=== PATIENT | female | born 1960 | race Caucasian/White ===

== ENCOUNTER → 2019-07-25 | Outpatient (CLI) | payer OTHER ==
--- NOTE | 2019-07-25 12:56 | Diagnostic Imaging Report ---
Ultrasound of the Kidneys, 07/25/2019. Clinical History: Right kidney disease. Discussion: Sonographic evaluation of the kidneys is performed. Right kidney: 12.8 cm in length. The right renal cortex is very thin. There is chronic appearing hydronephrosis versus large cysts which appear evaluation of the renal parenchyma. Left kidney: 11.6 cm in length, normal in size, with cortical thickness of 1.8 cm. Normal cortical echogenicity. There is a 1.1 cm simple appearing cyst in the upper pole.. No shadowing calculus. No hydronephrosis. Limited Doppler evaluation demonstrates normal color Doppler flow within bilateral renal erlinda. Fluid: No perinephric fluid. Bladder: Unremarkable. Bilateral ureteral jets are visualized. IMPRESSION: 1. Normal sonographic evaluation the left kidney. 2. The right kidney demonstrates either numerous large cysts which obscure the visualization of the renal parenchyma or chronic hydronephrosis with marked cortical thinning. Further evaluation can be obtained with renal protocol CT or MR. Signed by: Rocky Orourke MD on 07/25/2019 12:53 PM
== END ==
LOC: US 11:27
PROVIDERS: ATTEND Internal Medicine Nephrology
DX: N18.3 Chronic kidney disease, stage 3 (moderate) (principal)
CPT/HCPCS: 76770; 76857

== ENCOUNTER → 2019-09-05 | Outpatient (CLI) | payer OTHER ==
--- NOTE | 2019-09-05 08:52 | Diagnostic Imaging Report ---
EXAMINATION: CT of the abdomen and pelvis without contrast. TECHNIQUE: Spiral CT images of the abdomen and pelvis were performed from the lung bases to the lesser trochanters. No intravenous contrast was given per renal stone protocol. Coronal and sagittal reformatted images were obtained. COMPARISON: Renal ultrasound 07/25/2019 CLINICAL HISTORY:Right kidney hydronephrosis DISCUSSION: ABSENCE OF INTRAVENOUS CONTRAST DECREASES SENSITIVITY FOR DETECTION OF FOCAL LESIONS AND VASCULAR PATHOLOGY. ABDOMEN/PELVIS: LOWER THORAX: Emphysematous changes of the lung bases. 2 mm, 4 mm, and 6 mm noncalcified nodules in the left lower lobe (series 3 image 9, image 9, and image 17, respectively.) HEPATOBILIARY:No focal hepatic lesions. No intrahepatic biliary ductal dilation. The gallbladder is unremarkable. SPLEEN: No splenomegaly or focal splenic lesion. PANCREAS: No focal masses or ductal dilatation. ADRENALS: No adrenal nodules. KIDNEYS/URETERS: Severe right hydronephrosis with extremely thin, nearly imperceptible cortex. No hydroureter. No calculi. Subcentimeter hyperattenuating lesion in the cortex of the interpolar left kidney is too small to further characterize though likely to represent a hyperdense cyst. No left hydronephrosis. PELVIC ORGANS/BLADDER: Urinary bladder is unremarkable. No adnexal mass within limitations of noncontrast imaging. PERITONEUM/RETROPERITONEUM: No ascites or pneumoperitoneum. LYMPH NODES: Lack of intravenous contrast and paucity of intraperitoneal fat limits evaluation for lymphadenopathy. However, no gross pelvic sidewall, retroperitoneal, or mesenteric lymphadenopathy is appreciated. VESSELS: Atherosclerotic calcification of the abdominal aorta without aneurysmal dilatation. Evaluation is otherwise limited in the absence of intravenous contrast. GI TRACT: The large bowel shows no evidence of distention or wall thickening, though the distal colon is collapsed and poorly evaluated. The appendix is not definitively identified. No right lower quadrant inflammation. No small bowel dilatation. BONES AND SOFT TISSUES: Bilateral L5 pars defects with grade 1 anterolisthesis of L5 over S1. Degenerative disc changes and facet arthropathy L4-5 and L5-S1. IMPRESSION: Severe right hydronephrosis with associated cortical thinning, most likely due to chronic ureteropelvic junction obstruction in the absence of hydroureter or ureteral calculus. Multiple left lower lobe pulmonary nodules measuring up to 6 mm with background pulmonary emphysematous changes. A follow-up CT scan of the chest in 3-6 months is suggested in this high risk patient per Fleischner Society 2017 guidelines. Atherosclerotic vascular disease. Signed by: Dr. Rod Pinto M.D. on 09/05/2019 8:49 AM
== END ==
LOC: CT 07:50
PROVIDERS: ATTEND Internal Medicine Nephrology
DX: N13.30 Unspecified hydronephrosis (principal)
CPT/HCPCS: 74176

== ENCOUNTER → 2019-10-09 | Day surgery (SDC) | payer OTHER ==
[~2019-10-09] MED LIST: CEFTRIAXONE SOD 1 GM/NS 50 ML 50 ML IV ONE; IOPAMIDOL 300MG/ML 50ML INFUS..BTL IV ONE; LIDOCAINE HCL 2% LOCAL INJ 5 ML SDV VIAL INJ ONE; ONDANSETRON HCL INJ 2MG/ML 2ML 2 MG/ML VIAL ONE; PROPOFOL IV EMULSION 10 MG/ML 20 ML VIAL ONE; SEVOFLURANE INHAL SOLN 250 ML PEN BTL ONE
[2019-10-09 07:35] VITALS: BP 120/76
--- NOTE | 2019-10-16 16:19 | Operative Report ---
DATE OF PROCEDURE: 10/09/2019 SURGEON: Quan Fishman MD PREOPERATIVE DIAGNOSES: 1. Hydronephrosis. 2. Microscopic hematuria. POSTOPERATIVE DIAGNOSES: 1. Hydronephrosis. 2. Microscopic hematuria. PROCEDURES: 1. Cystourethroscopy with left ureteral catheterization and left retrograde pyelogram. 2. Cystourethroscopy with right ureteral catheterization and right retrograde pyelogram. 3. Supervision of fluoroscopy. 4. Interpretation of retrograde pyelography. ANESTHESIA: General. ESTIMATED BLOOD LOSS: Minimal. COMPLICATIONS: None. INDICATIONS FOR PROCEDURE: Ms. Bates is a very pleasant 58-year-old female with a history of right greater left hydronephrosis. She and I had a long discussion about alternatives, risks, and benefits of doing nothing, stent placement, nephrostomy. She voiced understanding of the options, alternatives, risks, and benefits, and she elected to proceed. She was expressed understanding stents are temporary indwelling device and it must be removed and failure to do so, it could lead to encrustation, infection, inflammation, atrophy, loss of kidney, and even . She elected to proceed. PROCEDURE IN DETAIL: After informed consent was obtained, the patient was taken to the operative suite, placed supine on the operative table, underwent general anesthesia by the Anesthesia Service, and was placed in dorsal position, and sterilely prepped and draped for cystoscopy. A 21-Panamanian cystoscope was inserted per urethra. Normal urethra was noted. Panendoscopy of the bladder revealed no tumors, no stones. Both ureteral orifices were in normal anatomic location and were seen to efflux clear urine. Bilateral retrograde pyelogram was performed, revealing a tortuous ureters bilaterally. The left collecting system was minimally dilated and did drain under fluoroscopy. After approximately there was over 270 degree turn, suggestive of . Despite multiple attempts with an angled Glidewire and a 5-Panamanian open-ended catheter could not navigate the wire into the patient's collecting system. With the inability to place a ureteral stent, the procedure was terminated. The bladder was drained. The patient was awakened from anesthesia and transported to recovery room in excellent condition. Supervision of fluoroscopy and interpretation of retrograde pyelography: I was present for the entire procedure and supervised the use of fluoroscopy. There was no radiologist present. Attention was turned to the left and right ureters, which were catheterized with a 5-Panamanian open-ended catheter. Retrograde pyelogram was performed on the left revealing a delicate ureter, delicate pelvocaliceal system; on the right revealing a tortuous dilated right proximal collecting system with inability to access proximal collecting system. IMPRESSION: Right hydronephrosis, . MD JOE Reese/MODL /[id number]
== END | disposition home or self-care (01) ==
LOC: OR 05:39
PROVIDERS: ATTEND Urology
DX: N13.30 Unspecified hydronephrosis (principal); N13.8 Other obstructive and reflux uropathy; N28.1 Cyst of kidney, acquired; N39.3 Stress incontinence (female) (male); K21.9 Gastro-esophageal reflux disease without esophagitis; Z88.6 Allergy status to analgesic agent; Z01.810 Encounter for preprocedural cardiovascular examination; Z01.812 Encounter for preprocedural laboratory examination; Z11.59 Encounter for screening for other viral diseases
CPT/HCPCS: 52005; 74420; 93005; C1758; C1769; J0696; J2001; J2405; J2704; Q9967; U0002

== ENCOUNTER → 2022-06-15 | Outpatient (CLI) | payer OTHER | LOC: US 07:48 | PROVIDERS: ATTEND Urology | DX: N28.1 Cyst of kidney, acquired (principal); R31.29 Other microscopic hematuria | CPT/HCPCS: 76770 ==